=== PATIENT | female | born 1975 | race African-American/Black ===

== ENCOUNTER 2019-11-16 15:52 | Emergency (ER) | payer OTHER, SELFPAY ==
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
[2019-11-16 16:29] VITALS: BP 105/83; PULSE 100; RESP 18; TEMP 36.7; O2SAT 100
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
[2019-11-16] MEDS: ACETAMINOPHEN 500 MG TABLET 1000 MG PO (17:39)
[2019-11-16 19:36] VITALS: BP 117/87; PULSE 82; RESP 16; O2SAT 100
== END 2019-11-16 19:38 | disposition home or self-care (01) ==
PROVIDERS: Emergency Provider Emergency Medicine
DX: S16.1XXA Strain of muscle, fascia and tendon at neck level, initial encounter (principal); S29.9XXA Unspecified injury of thorax, initial encounter; M25.522 Pain in left elbow; V43.02XA Car driver injured in collision with other type car in nontraffic accident, initial encounter
CPT/HCPCS: 71046; 71100; 72125; 73080; 99284; A9270